=== PATIENT | female | born 1985 | race Two or more races ===

== ENCOUNTER 2017-11-07 10:49 | Emergency (ER) | payer MEDICAID ==
[~2017-11-07] VITALS: Ht 157.5 cm; Wt 72.6 kg
[2017-11-07 11:13] VITALS: BP 137/87
[2017-11-07 11:25] LABS: APPEARANCE,URINE CLEAR; BILIRUBIN, URINE NEGATIVE (NEGATIVE); COLOR,URINE PALE YELLOW; GLUCOSE, URINE (UA) NEGATIVE (NEGATIVE); KETONES,URINE NEGATIVE (NEGATIVE); LEUKOCYTE ESTERASE ,URINE NEGATIVE (NEGATIVE); NITRITE,URINE NEGATIVE (NEGATIVE); PH,URINE 5 (4.5-8.0); PROTEIN,URINE NEGATIVE (NEGATIVE); UROBILINOGEN,URINE NORMAL MG/DL (0.0-1.0)
--- NOTE | 2017-11-07 11:26 | Emergency Room Report ---
History of Present Illness General Chief Complaint: Generalized Weakness Source: Patient, EMS (Azar Barker MD) Present Illness HPI Patient is a 32-year-old female who presented after increased generalized weakness. Patient had reportedly been approximately one half months. The patient had been having generalized weakness since prior to delivery. The patient had been brought in by EMS. (Azar Barker MD) Allergies: Coded Allergies: No Known Allergies (Unverified , 11/07/17) Patient History Reviewed Nursing Documentation: PMH: Agreed; PSxH: Agreed (Azar Barker MD) Nursing Documentation-PMH Past Medical History: No History, Except For (Azar Barker MD) Review of Systems All Other Systems: negative except mentioned in HPI (Azar Barker MD) Physical Exam Vital Signs Date Time Temp Pulse Resp B/P (MAP) Pulse Ox O2 Delivery O2 Flow Rate FiO2 11/07/17 10:45 98.1 126 16 141/86 98 Room Air 98.1 Sp02 EP Interpretation: reviewed, normal General Appearance: normal inspection, well appearing, no apparent distress Head: atraumatic ENT: normal ENT inspection, hearing grossly normal, normal voice Neck: normal inspection, full range of motion, supple, no bony tend Respiratory: normal inspection, lungs clear, normal breath sounds, no respiratory distress, no retraction, no wheezing Cardiovascular #1: no edema, tachycardia Gastrointestinal: normal inspection, normal bowel sounds, non tender, soft, no guarding, no hernia Genitourinary: no CVA tenderness Musculoskeletal: normal inspection, back normal, normal range of motion Skin: normal inspection, normal color, no rash (Azar Barker MD) Medical Decision Making Diagnostic Impression: Primary Impression: Generalized weakness Additional Impressions: Tachycardia Altered level of consciousness Marijuana use Hypokalemia ER Course Patient presented for generalized weakness. The differential diagnosis here was not limited to anemia, endometritis, dehydration, seizure among others. Because of complexity of patient's case laboratory testing and imaging studies were ordered. The laboratory studies were unremarkable. The patient noted to have the recent vaginal delivery. Patient does not appear to be in any respiratory distress and denies any chest pain.The patient given IV hydration as well as oral potassium Labs Test 11/07/17 11:00 White Blood Count 7.6 K/UL (4.8-10.8) Red Blood Count 4.89 M/UL (4.20-5.40) Hemoglobin 14.0 G/DL (12.0-16.0) Hematocrit 42.9 % (37.0-47.0) Mean Corpuscular Volume 88 FL (80-99) Mean Corpuscular Hemoglobin 28.7 PG (27.0-31.0) Mean Corpuscular Hemoglobin Concent 32.6 G/DL (32.0-36.0) Red Cell Distribution Width 12.5 % (11.6-14.8) Platelet Count 311 K/UL (150-450) Mean Platelet Volume 6.5 FL (6.5-10.1) Neutrophils (%) (Auto) 38.5 % (45.0-75.0) Lymphocytes (%) (Auto) 53.5 % (20.0-45.0) Monocytes (%) (Auto) 5.1 % (1.0-10.0) Eosinophils (%) (Auto) 1.8 % (0.0-3.0) Basophils (%) (Auto) 1.2 % (0.0-2.0) Prothrombin Time 9.2 SEC (9.30-11.50) Prothromb Time International Ratio 0.9 (0.9-1.1) Activated Partial Thromboplast Time 25 SEC (23-33) Urine Color Pale yellow Urine Appearance Clear Urine pH 5 (4.5-8.0) Urine Specific Clark 1.015 (1.005-1.035) Urine Protein Negative (NEGATIVE) Urine Glucose (UA) Negative (NEGATIVE) Urine Ketones Negative (NEGATIVE) Urine Occult Blood Negative (NEGATIVE) Urine Nitrite Negative (NEGATIVE) Urine Bilirubin Negative (NEGATIVE) Urine Urobilinogen Normal MG/DL (0.0-1.0) Urine Leukocyte Esterase Negative (NEGATIVE) Urine RBC 0 /HPF (0 - 2) Urine WBC 0-2 /HPF (0 - 2) Urine Squamous Epithelial Cells Occasional /LPF Urine Bacteria Occasional /HPF (NONE) Sodium Level 136 MMOL/L (136-145) Potassium Level 3.4 MMOL/L (3.5-5.1) Chloride Level 102 MMOL/L (98-107) Carbon Dioxide Level 25 MMOL/L (21-32) Anion Gap 9 mmol/L (5-15) Blood Urea Nitrogen 20 mg/dL (7-18) Creatinine 0.7 MG/DL (0.55-1.30) Estimat Glomerular Filtration Rate > 60 mL/min (>60) Glucose Level 125 MG/DL (74-106) Calcium Level 9.4 MG/DL (8.5-10.1) Total Bilirubin 0.4 MG/DL (0.2-1.0) Aspartate Amino Transf (AST/SGOT) 36 U/L (15-37) Alanine Aminotransferase (ALT/SGPT) 58 U/L (12-78) Alkaline Phosphatase 188 U/L (46-116) Total Protein 7.6 G/DL (6.4-8.2) Albumin 3.6 G/DL (3.4-5.0) Globulin 4.0 g/dL Albumin/Globulin Ratio 0.9 (1.0-2.7) Serum Alcohol < 3 mg/dL (Azar Barker MD) ER Course Hospital Course 32-year-old female presents with drowsiness, dizziness. Weakness Clinical course patient initially seen and evaluated by Dr. Barker; please see his note for full history and physical Labs reviewed-electrolytes okay, no leukocytosis, hemoglobin/hematocrit stable, tox panel + THC CT brain shows no acute pathology CTA chest - no evidnece of PE EKGsinus tachycardia, no acute ischemic changes interpreted by me Patient initially tachycardic. Resolved after IV fluids. I discussed findings with patient, family. Patient denies marijuana use. Patient states she still feels drowsy and dizzy. patient will be admitted to Dr Clement chan. I feel this is a highly complex case requiring extensive working including EKG/Rhythm strip, Xray/CT/US, Blood/urine lab work, repeat exams while in ED, and administration of strong opiates/narcotics for pain control, admission to hospital or close patient follow up. Diagnosis -generalized weakness, tachycardia, altered level of consciousness, marijuana use Patient admitted to floor in serious condition Labs Test 11/07/17 11:00 11/07/17 15:13 11/07/17 17:20 White Blood Count 7.6 K/UL (4.8-10.8) Red Blood Count 4.89 M/UL (4.20-5.40) Hemoglobin 14.0 G/DL (12.0-16.0) Hematocrit 42.9 % (37.0-47.0) Mean Corpuscular Volume 88 FL (80-99) Mean Corpuscular Hemoglobin 28.7 PG (27.0-31.0) Mean Corpuscular Hemoglobin Concent 32.6 G/DL (32.0-36.0) Red Cell Distribution Width 12.5 % (11.6-14.8) Platelet Count 311 K/UL (150-450) Mean Platelet Volume 6.5 FL (6.5-10.1) Neutrophils (%) (Auto) 38.5 % (45.0-75.0) Lymphocytes (%) (Auto) 53.5 % (20.0-45.0) Monocytes (%) (Auto) 5.1 % (1.0-10.0) Eosinophils (%) (Auto) 1.8 % (0.0-3.0) Basophils (%) (Auto) 1.2 % (0.0-2.0) Prothrombin Time 9.2 SEC (9.30-11.50) Prothromb Time International Ratio 0.9 (0.9-1.1) Activated Partial Thromboplast Time 25 SEC (23-33) Urine Color Pale yellow Urine Appearance Clear Urine pH 5 (4.5-8.0) Urine Specific Clark 1.015 (1.005-1.035) Urine Protein Negative (NEGATIVE) Urine Glucose (UA) Negative (NEGATIVE) Urine Ketones Negative (NEGATIVE) Urine Occult Blood Negative (NEGATIVE) Urine Nitrite Negative (NEGATIVE) Urine Bilirubin Negative (NEGATIVE) Urine Urobilinogen Normal MG/DL (0.0-1.0) Urine Leukocyte Esterase Negative (NEGATIVE) Urine RBC 0 /HPF (0 - 2) Urine WBC 0-2 /HPF (0 - 2) Urine Squamous Epithelial Cells Occasional /LPF Urine Bacteria Occasional /HPF (NONE) Sodium Level 136 MMOL/L (136-145) Potassium Level 3.4 MMOL/L (3.5-5.1) Chloride Level 102 MMOL/L (98-107) Carbon Dioxide Level 25 MMOL/L (21-32) Anion Gap 9 mmol/L (5-15) Blood Urea Nitrogen 20 mg/dL (7-18) Creatinine 0.7 MG/DL (0.55-1.30) Estimat Glomerular Filtration Rate > 60 mL/min (>60) Glucose Level 125 MG/DL (74-106) Calcium Level 9.4 MG/DL (8.5-10.1) Total Bilirubin 0.4 MG/DL (0.2-1.0) Aspartate Amino Transf (AST/SGOT) 36 U/L (15-37) Alanine Aminotransferase (ALT/SGPT) 58 U/L (12-78) Alkaline Phosphatase 188 U/L (46-116) Total Protein 7.6 G/DL (6.4-8.2) Albumin 3.6 G/DL (3.4-5.0) Globulin 4.0 g/dL Albumin/Globulin Ratio 0.9 (1.0-2.7) Serum Alcohol < 3 mg/dL Human Chorionic Gonadotropin, Qual Negative Urine Opiates Screen Negative (NEGATIVE) Urine Barbiturates Screen Negative (NEGATIVE) Phencyclidine (PCP) Screen Negative (NEGATIVE) Urine Amphetamines Screen Negative (NEGATIVE) Urine Benzodiazepines Screen Negative (NEGATIVE) Urine Cocaine Screen Negative (NEGATIVE) Urine Marijuana (THC) Screen Positive (NEGATIVE) (Robbie Denson MD) EKG Diagnostic Results Rate: tachycardiac Rhythm: NSR - 109 ST Segments: no acute changes (Azar Barker MD) Rate: tachycardiac Rhythm: NSR ST Segments: no acute changes ASA given to the pt in ED: No (Robbie Denson MD) Rhythm Strip Diag. Results EP Interpretation: yes Rhythm: NSR, no PVC's, no ectopy (Robbie Denson MD) CT/MRI/US Diagnostic Results CT/MRI/US Diagnostic Results #1: Imaging Test Ordered: CT head Impression no acute process CT/MRI/US Diagnostic Results #2: Imaging Test Ordered: CTA Chest Impression no acute process. no evidence of PE (Robbie Denson MD) Last Vital Signs Date Time Temp Pulse Resp B/P (MAP) Pulse Ox O2 Delivery O2 Flow Rate FiO2 11/07/17 11:13 112 14 137/87 100 Room Air 11/07/17 10:45 98.1 98.1 Status: improved (Azar Barker MD) Status: improved (Robbie Denson MD) Disposition: ADMITTED INPATIENT Condition: Serious Scripts No Active Prescriptions or Reported Meds Azra Barker MD Nov 07, 2017 11:26 Robbie Denson MD Nov 07, 2017 18:37
[2017-11-07 11:30] LABS: BASOPHILS % (AUTO) 1.2 % (0.0-2.0); EOSINOPHILS % (AUTO) 1.8 % (0.0-3.0); HEMATOCRIT 42.9 % (37.0-47.0); LYMPHOCYTES % (AUTO) 53.5 % (20.0-45.0); MEAN CORPUSCULAR VOLUME 88 FL (80-99); MONOCYTES % (AUTO) 5.1 % (1.0-10.0); NEUTROPHILS % (AUTO) 38.5 % (45.0-75.0); PLATELET COUNT 311 K/UL (150-450); RED BLOOD COUNT 4.89 M/UL (4.20-5.40); RED CELL DISTRIBUTION WIDTH 12.5 % (11.6-14.8); WHITE BLOOD COUNT 7.6 K/UL (4.8-10.8)
[2017-11-07] MEDS ORDERED: Thiamine HCl 100 MG in D5W 55 ML IVPB ONE (11:30)
[2017-11-07 11:37] LABS: INR 0.9 (0.9-1.1)
[2017-11-07 11:38] LABS: ANION GAP 9 mmol/L (5-15); BLOOD UREA NITROGEN 20 mg/dL (7-18); CALCIUM 9.4 MG/DL (8.5-10.1); CARBON DIOXIDE 25 MMOL/L (21-32); CHLORIDE 102 MMOL/L (98-107); CREATININE 0.7 MG/DL (0.55-1.30); POTASSIUM 3.4 MMOL/L (3.5-5.1); SODIUM 136 MMOL/L (136-145)
[2017-11-07 11:46] LABS: ALANINE AMINOTRANSFERASE 58 U/L (12-78); ALBUMIN 3.6 G/DL (3.4-5.0); ALBUMIN/GLOBULIN RATIO 0.9 (1.0-2.7); ALKALINE PHOSPHATASE 188 U/L (46-116); ASPARTATE AMINO TRANSFERASE 36 U/L (15-37); BILIRUBIN,TOTAL 0.4 MG/DL (0.2-1.0)
[2017-11-07] MEDS ORDERED: Isovue-370 150ml vial INJ PRN (13:30)
[2017-11-07 14:07] VITALS: BP 130/78
--- NOTE | 2017-11-07 15:08 | Diagnostic Imaging Report ---
Indication: Pelvic pain, weakness, 2 months Technique: Transabdominal images only. Patient unable to reposition for endovaginal exam due to inability to cooperate optimally Comparison: none Findings: Bladder is distended. Bladder volume calculated at 905 mL. The uterus measures 9.2 cm length by 2.9 cm AP. The endometrial stripe is not definitely visualized. No gross findings to suggest retained products of conception. Right ovary measures 2.5 cm length. Left ovary measures 2.4 cm length. No adnexal mass. Impression: Very limited exam, due to lack of endovaginal imaging No gross retained products of conception or other significant gynecological abnormality Distended urinary bladder
[2017-11-07 16:22] VITALS: BP 124/74
--- NOTE | 2017-11-07 16:30 | Diagnostic Imaging Report ---
ndication: Chest pain Technique: IV administration nonionic contrast. Spiral acquisitions obtained from the lung bases to the lung apices. Multiplanar and 3-D reconstructions were generated. Total dose length product 611.72 mGycm. CTDIvol(s) 20.32 mGy. Dose reduction achieved using automated exposure control Comparison: none Findings: Distal pulmonary vessels are suboptimally opacified, particularly in the lower lobes. There is also a slight degree of image degradation due to respiratory motion artifact, particularly in the lower lungs. No definite large vessel central pulmonary embolus. Normal caliber pulmonary arteries. No evidence of right ventricular dilatation. No evidence of thoracic aortic aneurysm or dissection. Classic branching anatomy of the great neck vessels. The lungs demonstrate posterior dependent atelectatic changes. No infiltrates, effusions, masses, or nodules. The heart is upper limits normal in size No pericardial effusion. No mediastinal or hilar mass or adenopathy. Included portions of the thyroid are unremarkable. No axillary or chest wall mass or adenopathy. No bony abnormality. The included upper abdominal anatomy is unremarkable. Impression: Suboptimal pulmonary arterial opacification, precludes exclusion of distal emboli. No gross large vessel central pulmonary emboli Dependent pulmonary parenchymal atelectatic changes. No acute parenchymal process otherwise The CT scanner at [facility] is accredited by the [employer] and the scans are performed using protocols designed to limit radiation exposure to as low as reasonably achievable to attain images of sufficient resolution adequate for diagnostic evaluation.
[2017-11-07 19:14] VITALS: BP 124/74
--- NOTE | 2017-11-08 08:36 | Diagnostic Imaging Report ---
Indication: Altered mental status Technique: Continuous helical CT scanning of the head was performed without intravenous contrast material. Axial and coronal 5 mm sections were generated. Radiation dose was minimized using automated exposure control Dose: Total Dose Length Product - DLP 1274.[address] Dose Index - CTDIvol(s) 70.38 mGy. Comparison: none Findings: The ventricular system is normal in size and configuration. There is no shift of midline structures. No abnormal extra-axial fluid collections are noted. There is no evidence of intracerebral bleeding. No other abnormal high or low density areas are noted within the brain. Normal marie-white differentiation. Intact calvarium. Visualized orbits and sinuses are unremarkable Impression: Normal CT scan of the head without contrast material. This agrees with the preliminary interpretation provided overnight by [facility]. The CT scanner at [facility] is accredited by the [employer] and the scans are performed using protocols designed to limit radiation exposure to as low as reasonably achievable to attain images of sufficient resolution adequate for diagnostic evaluation.
--- NOTE | 2017-11-08 14:58 | Cardiology Report ---
APPROVED REPORT EKG Measurement Heart [id number] Sinus tachycardia Rightward axis Nonspecific ST abnormality Abnormal ECG
== END 2017-11-07 19:17 | disposition home or self-care (01) ==
LOC: EDBD 10:49 → EMR 13:45 → UNDOADMIN 18:00 → 4W 18:00 → EDBEDREQ 18:30 → EMR 19:17 → CANBEDREQ 19:17
DX: R53.1 Weakness (principal); R00.0 Tachycardia, unspecified; R41.82 Altered mental status, unspecified; E87.6 Hypokalemia; F12.90 Cannabis use, unspecified, uncomplicated; R10.2 Pelvic and perineal pain
CPT/HCPCS: 36415; 70450; 71275; 76856; 80053; 80307; 80329; 81001; 84703; 85025; 85610; 85730; 93005; 96365; 99285; Q9967; J8499